=== PATIENT | female | born 2000 | race Caucasian/White ===

== ENCOUNTER 2025-07-01 13:49 | Outpatient (OUT) | payer OTHER, SELFPAY ==
--- OUTSIDE RECORDS SUMMARY | 2025-07-01 13:53 | XMS_ITS | Clinical Summary ---
Author Organization [employer] Address [facility] [id number] [address] [place] [address] Care Team Providers Care Circle Beveler Name Role Phone No Pcp, No Pcp Primary Care Provider Unavailabl e Allergies Active AllergyReactionsCriticalityNoted DateCommentsDog DanderHivesHigh 05/22/2019 horses as well Medications MedicationSigDispense QuantityRefillsLast FilledStart DateEnd DateStatus glycopyrrolate (ROBINUL) 1 mg tablet Take 1.5 mg by mouth daily. 11003/12/2019Active vit,calc76/iron/folic (PNV 29-1 ORAL) Take by mouth Daily at 0700.Active ferrous sulfate (FEOSOL) 300 mg (60 mg elemental iron)/5 mL syrup Take 5 mL (300 mg total) by mouth in the morning.Active docusate sodium (COLACE) 100 mg capsule Take 1 capsule (100 mg total) by mouth 2 (two) times a day as needed for constipation.5Active ibuprofen (MOTRIN) 800 mg tablet Take 1 tablet (800 mg total) by mouth every 8 (eight) hours as needed for pain. 5Active acetaminophen (TYLENOL EXTRA STRENGTH) 500 mg tablet Take 2 tablets (1,000 mg total) by mouth every 8 (eight) hours as needed for pain.5Active Active Problems ProblemNoted DateDiagnosed DatePostpartum care following delivery 5Cesarean delivery uvftaatqe32/15/2025 Overview (08/24/2024): Emergent for Arrest of descent & intolerance of labor Resolved Problems ProblemNoted DateDiagnosed DateResolved WbxjSusjhlmag33/15/94767708/24/2024Post term at 41 weeks svsaltdyj71/15/379308/Prolonged rupture of ppfipwgyw30 Immunizations ImmunizationAdministration DatesNext NagFWbT0403/19/2004,06/30/2003DTaP / Hep B / IPV09/08/2003,05/30/2003Hep B, Adolescent or Wmpenauyl06/09/2003Hib (PRP-T) 12/22/2003,09/08/2003,06/30/2003IPV108/31/2002Influenza, Injectable, quadrivalent (PF)05/22/2019MMR08/26/2024(),05/29/2019,12/22/2003Pneumococcal Conjugate 03/19/2004,12/22/2003,09/08/2003Tdap08/26/2024(),05/27/20193269Cwbjjzaxn05/17/2025() Family History RelationNameStatusCommentsFatherAliveMotherAlive Social History Tobacco UseTypesPacks/DayYears UsedDateSmoking Tobacco: NeverSmokeless Tobacco: NeverAlcohol UseStandard Drinks/WeekCommentsNever0 (1 standard drink = 0.6 oz pure alcohol)[facility] UtilitiesAnswerDate RecordedIn the past 12 months has the [employer], gas, oil, or water [employer] threatened to shut off services in your home?No08/24/2024UDIT-CAnswerDate RecordedFrequency of Alcohol ConsumptionNever 10/20/2020verage Number of DrinksNot on file10/20/2020Frequency of Binge DrinkingNot on file1PHQ-2AnswerDate RecordedTotal Rzxhd692 PRAPARE - TransportationAnswerDate RecordedIn the past 12 months, has lack of transportation kept you from medical appointments or from getting medications?No 08/24/2024In the past 12 months, has lack of transportation kept you from meetings, work, or from getting things needed for daily living?No08/24/2024 Housing InstabilityAnswerDate RecordedAre you worried or concerned that in the next two months you may not have stable housing that you own, rent or stay in as a part of a household?No08/24/2024hildcareAnswerDate RecordedChildcareUnknown 12/19/2018EmploymentAnswerDate RccdxubmLiymnrzjauOcnqili95/12/2019Hunger ScreeningAnswerDate RecordedWithin the past 12 months we worried whether our food would run out before we got money to buy more.Never True08/24/2024Within the past 12 months the food we bought just didn't last and we didn't have money to get more.Never True08/24/2024Purpose - LifeAnswerDate RecordedPurpose and direction in hksgSknhvrz58/11/2021CommentsNoSex and Gender Information ValueDate RecordedSex Assigned at BirthNot on fileLegal SowWckpsj47/06/2015 12:00 PM EDTGender IdentityNot on fileSexual OrientationNot on file Last Filed Vital Signs Vital SignReadingTime TakenCommentsBlood Vroopeub302/61008/26/2024 9:59 AM EST Mnrkx623608/26/2024 9:59 AM FUXGmbytvapmkl81.6 ??C (97.8 ??F)08/26/2024 9:59 AM ESTRespiratory Jybd560708/26/2024 9:59 AM ESTOxygen Lqfakxlzwx70%08/26/2024 9:59 AM ESTInhaled Oxygen Concentration--Dscouz93.2 kg (135 lb)08/24/2024 12:25 AM XURKavllq030.9 cm (5' 1 )08/24/2024 12:25 AM ESTBody Mass Index25.51008/24/2024 12:25 AM EST Plan of Treatment Health MaintenanceDue DateLast DoneCommentsDepression Ccmteerow01/09/2015dult BMI Follow Up Plan1Pap Smear12/17/2023Influenza Smcgsxi8903/10/2025 05/22/2019Adult BMI Aosfeirqb73/15/82950708/24/2024Tobacco Ahrsmjbct65/16/2026 08/25/2024DTaP,Tdap and Td Vaccines (6 - Td or Tdap), 03/19/2004, 09/08/2003, Additional history exists Medical Devices Not on file Insurance Advance Directives TypeDate RecordedPatient RepresentativeExplanationDurable Power of Canned Food Reconditioning Inspector 07/21/2021 10:15 AMLiving Will07/21/2021 10:15 AM * Full Code (Latest Code Status on File) Date ActivatedDate InactivatedComments08/23/2024 11:59 PM2 5:49 PM Care Teams Team MemberRelationshipSpecialtyStart DateEnd Date No Pcp, [place] [address] PCP - GeneralFamily Medicine08/25/24
--- OUTSIDE RECORDS SUMMARY | 2025-07-01 13:53 | XMS_ITS | Clinical Summary ---
Author Organization [facility] Address [address] [place] [address] Care Team Providers Care Patient Coordinator Name Role Phone Unavailable Primary Care Provider Unavailabl e Allergies No known active allergies Medications MedicationSigDispense QuantityRefillsLast FilledStart DateEnd DateStatus glycopyrrolate (Robinul) 1 MG tablet Take 2 mg by mouth in the morning.01/06/2023ctive nitrofurantoin, macrocrystal-monohydrate, (Macrobid) 100 MG capsule Take 100 mg by mouth in the morning and 100 mg before bedtime.12/12/2022ctive phenazopyridine (Pyridium) 200 MG tablet TAKE 1 TABLET BY MOUTH THREE TIMES A DAY FOR 2 DAYS12/12/2022ctive Active Problems No known active problems Social History Tobacco UseTypesPacks/DayYears UsedDateSmoking Tobacco: NeverSmokeless Tobacco: NeverCommentsUnknownSex and Gender InformationValueDate RecordedSex Assigned at BirthNot on fileLegal IkmQctjor12/15/2023 7:01 PM EDTGender Identity Not on fileSexual OrientationNot on file Plan of Treatment Not on file Insurance
--- NOTE | 2025-07-01 13:56 | US_ITS ---
Patient Name: MANUEL DEWEY MR#: [id number] : 2000 Exam Date: 07/01/2025 Ordering Doctor: DR NAMITA BASS M.D. RADIOLOGY REPORT PROCEDURE: US BREAST LT LIMITED COMPARISON: None. INDICATIONS: Mass Of Left Breast TECHNIQUE: Breast ultrasound was performed, with evaluation focusing only on specific areas of concern. FINDINGS: DIAGNOSTIC CATEGORY 1--NEGATIVE. Area of concern at the 12 o'clock position of the left breast no solid mass or fluid collection is seen . RECOMMENDATIONS: ROUTINE MAMMOGRAM AND CLINICAL EVALUATION IN 12 MONTHS. The patient's palpable lump should be clinical basis . PLEASE NOTE: A NORMAL ULTRASOUND EXAMINATION DOES NOT EXCLUDE THE POSSIBILITY OF BREAST CANCER. A CLINICALLY SUSPICIOUS PALPABLE LUMP SHOULD BE BIOPSIED. Dictated by: Dashawn Santoro DO on 07/01/2025 at 14:20 Approved by: Dashawn Santoro DO on 07/01/2025 at 14:21
== END 2025-07-01 13:50 | disposition home or self-care (01) ==
LOC: US 13:49
PROVIDERS: PCP Family Medicine; Visit Provider Family Medicine
DX: N63.20 Unspecified lump in the left breast, unspecified quadrant (principal)
CPT/HCPCS: 76642